=== PATIENT | male | born 1945 | race Caucasian/White ===

== ENCOUNTER → 2020-03-27 | Outpatient (CLI) | payer MEDICARE | END | disposition home or self-care (01) | LOC: LABWHC1 12:32 | PROVIDERS: ATTEND Internal Medicine Gastroenterology | DX: Z11.59 Encounter for screening for other viral diseases (principal) ==

== ENCOUNTER 2020-03-29 09:11 | Day surgery (SDC) | payer MEDICARE ==
[2020-03-27 11:22] VITALS: BMI 28.0
[~2020-03-29 09:11] MED LIST: LACTATED RINGERS 1,000 ML IV SCH; LIDOCAINE 1% (10MG/ML) FOR IV START INTRADERMA PRN
[2020-03-29 10:08] VITALS: RESP 16; TEMP 97.1
[2020-03-29] MEDS ORDERED: fentaNYL (PF) 50 MCG/ML 2 ML AMP ONE (10:29)
[2020-03-29] MEDS ORDERED: PROPOFOL 10 MG/ML 20 ML VIAL IV ONE (10:29)
[2020-03-29] MEDS ORDERED: MIDAZOLAM 2 MG/2 ML VIAL ONE (10:29)
--- NOTE | 2020-03-29 10:51 | P.PCN ---
Date of Procedure: 03/29/20 Procedure(s) Performed: BRIEF HISTORY: Patient is a 74-year-old pleasant male scheduled for an elective colonoscopy as a part of follow-up of a flat ascending colon polyp noted on colonoscopy in September 2019 which was partially removed and biopsies revealed tubulovillous adenoma. He scheduled for repeat surveillance as well as colonoscopy for complete polypectomy. PROCEDURE PERFORMED: Colonoscopy. PREOPERATIVE DIAGNOSIS: Follow-up ascending colon polyp. IV sedation per Anesthesia. PROCEDURE: After informed consent was obtained, the patient, was brought into the endoscopy unit. IV sedation was administered by Anesthesia under continuous monitoring. Digital rectal examination was normal. Initially the Olympus CF-160 flexible video colonoscope was then inserted in the rectum, gradually advanced into the cecum without any difficulty. Careful examination was performed as the scope was gradually being withdrawn. Ileocecal valve and the appendiceal orifice were visualized and appeared normal. Prep was excellent. Mucosa of the cecum, ascending colon, transverse colon, descending colon, sigmoid colon, and rectum appeared normal. Retroflexion was performed in the rectum and small internal were seen. The patient tolerated the procedure well. IMPRESSION: No evidence of residual polyp noted in the ascending colon Small internal hemorrhoids RECOMMENDATIONS: Findings of this examination were discussed with the patient as well as his family. He was advised to have a repeat surveillance colonoscopy in 3 years from now.
[2020-03-29 11:06] VITALS: BP 141/84; PULSE 82
== END 2020-03-29 11:25 | disposition home or self-care (01) ==
LOC: ORWHC2ENDO 09:11
PROVIDERS: ATTEND Internal Medicine Gastroenterology
DX: Z09 Encounter for follow-up examination after completed treatment for conditions other than malignant neoplasm (principal); K64.8 Other hemorrhoids; Z86.010 Personal history of colon polyps; E78.5 Hyperlipidemia, unspecified; E78.00 Pure hypercholesterolemia, unspecified; N42.9 Disorder of prostate, unspecified; Z88.2 Allergy status to sulfonamides; Z88.6 Allergy status to analgesic agent; Z79.899 Other long term (current) drug therapy
CPT/HCPCS: 45378; J2250; J3010; J2704

== ENCOUNTER → 2021-01-01 | Outpatient (CLI) | payer MEDICARE ==
--- NOTE | 2021-01-01 21:57 | MR ---
EXAMINATION TYPE: MR angio head wo con DATE OF EXAM: 01/01/2021 COMPARISON: NONE HISTORY: Tunnel vision for 3 weeks. Other localized visual field defect, bilateral. TECHNIQUE: Time of flight images focusing on the [place] were performed without contrast.. 2-D and 3-D postprocessing imaging is performed on a independent workstation and reviewed.. FINDINGS: There is codominant vertebrobasilar system. Vertebral arteries are patent to basilar juncti on. There is hypoplastic right P1 segment with filling of right P2 segment due to patent right blood bank order control clerk ior medicating artery. There is hypoplastic left posterior communicating artery. Images of the anterior circulation show hypoplastic anterior communicating artery. There is no signif icant focal stenosis or aneurysmal change in the anterior circulation. IMPRESSION: No aneurysm at level of [place].
--- NOTE | 2021-01-01 21:58 | MR ---
EXAMINATION TYPE: MR brain wo/w con DATE OF EXAM: 01/01/2021 COMPARISON: NONE HISTORY: Tunnel vision for 3 weeks. Other localized visual field defect, bilateral. TECHNIQUE: Multiplanar, multisequence images of the brain and brainstem is performed without and with IV contras t, utilizing 8.5 mL intravenous Gadavist . FINDINGS: Diffusion weighted images demonstrate no evidence of a recent infarct or other diffusion ab normality. There is mild ventricular and sulcal prominence. Occasional scattered focus of T2 hyperin tensity seen throughout the white matter bilaterally. Midline structures demonstrate normal morphology. The craniocervical junction appears within normal limits. Post contrast images demonstrate no abnormal enhancement. The dural venous sinuses appear pa tent. The visualized sinuses are clear and the globes are intact. Suprasellar cistern is maintained. IMPRESSION: Mild diffuse age-related cerebral atrophy and minimal chronic small vessel ischemic hensley e. No MRI evidence for recent infarct.
== END | disposition home or self-care (01) ==
LOC: RADMRIMAIN 18:03
PROVIDERS: ATTEND Family Medicine
DX: G31.1 Senile degeneration of brain, not elsewhere classified (principal); I67.82 Cerebral ischemia; H53.453 Other localized visual field defect, bilateral
CPT/HCPCS: 70544; 70553; A9585

== ENCOUNTER → 2023-10-14 | Outpatient (CLI) | payer MEDICARE ==
[2023-10-14 18:46] LABS: HCT 42.9 % (39.6-50.0); HGB 14.2 g/dL (13.0-17.0); MCHC 33.1 g/dL (32.0-37.0); MCV 90.7 FL (80.0-97.0); Mean Platelet Volume 10.3 FL (9.5-12.2); NRBC Per 100 WBC 0 X 10*3/uL (0.00-0.01); Platelet Count 278 X 10*3/uL (140-440); RBC 4.73 X 10*6/uL (4.40-5.60); RDW 12.9 % (11.5-14.5)
[2023-10-14 18:49] LABS: ALT 32 U/L (10-49); AST 18 U/L (14-35); Albumin 4.4 g/dL (3.8-4.9); Albumin/Globulin Ratio 1.57 Ratio (1.60-3.17); Alkaline Phosphatase 67 U/L (41-126); Blood Urea Nitrogen 14.4 mg/dL (9.0-27.0); Calcium 9.9 mg/dL (8.7-10.3); Carbon Dioxide 26.2 mmol/L (21.6-31.8); Chloride 104 mmol/L (96-109); Globulin 2.8 g/dL (1.6-3.3); Glucose 123 mg/dL (70-110); Sodium 142 mmol/L (135-145); Total Bilirubin 0.5 mg/dL (0.3-1.2); Total Protein 7.2 g/dL (6.2-8.2)
[2023-10-14 21:21] LABS: Prothrombin Time 10.6 sec (10.0-12.5)
== END | disposition home or self-care (01) ==
LOC: LABPAT 13:40
PROVIDERS: ATTEND Orthopaedic Surgery Sports Medicine
DX: Z01.812 Encounter for preprocedural laboratory examination (principal); Z22.322 Carrier or suspected carrier of Methicillin resistant Staphylococcus aureus; M25.512 Pain in left shoulder; I44.4 Left anterior fascicular block; R94.31 Abnormal electrocardiogram [ECG] [EKG]
CPT/HCPCS: 80053; 85027; 85610; 85730; 87070; 93005

== ENCOUNTER → 2024-03-11 | Outpatient (CLI) | payer MEDICARE ==
--- NOTE | 2024-03-12 07:16 | CA ---
Transthoracic Echo Report Name: Justice Ceballos Age: 78 Gender: M : 1945 Exam Date: 03/11/2024 15:31 Exam Location: [facility] Ht (in): 69 Wt (lb): 185 Ordering Physician: Lai David DO Attending/Referring Phys: FlakitaAlisa [facility] [employer] Prado RDCS Procedure CPT: Indications: Z73.89 OTHER PROBLEMS RELATED TO LIFE MANAGEMENT D Cardiac Hx: Technical Quality: Fair Contrast 1: Total Dose (mL): Contrast 2: Total Dose (mL): MEASUREMENTS (Male / Female) Normal Values 2D ECHO LV Diastolic Diameter PLAX 5.1 cm 4.2 - 5.9 / 3.9 - 5.3 cm LV Systolic Diameter PLAX 3.6 cm IVS Diastolic Thickness 0.7 cm 0.6 - 1.0 / 0.6 - 0.9 cm LVPW Diastolic Thickness 0.9 cm 0.6 - 1.0 / 0.6 - 0.9 cm LV Relative Wall Thickness 0.3 RV Internal Dim ED PLAX 2.4 cm LVOT Diameter 2.1 cm Aortic Root Diameter 3.4 cm LV Diastolic Volume MOD BP 111.3 cm??? 67 - 155 / 56 - 104 cm??? LV Systolic Volume MOD BP 41.6 cm??? 22 - 58 / 19 - 49 cm??? LV Ejection Fraction MOD BP 62.6 % >= 55 % LV Cardiac Index MOD BP 2702.9 cm???/min???m??? LV Diastolic Volume MOD 4C 114.8 cm??? LV Systolic Volume MOD 4C 36.1 cm??? LV Ejection Fraction MOD 4C 68.5 % LV Cardiac Index MOD 4C 3050.8 cm???/min???m??? LV Diastolic Length 4C 8.8 cm LV Systolic Length 4C 7.4 cm LV Diastolic Volume MOD 2C 105.5 cm??? LV Systolic Volume MOD 2C 45.6 cm??? LV Ejection Fraction MOD 2C 56.8 % LV Cardiac Index MOD 2C 2322.2 cm???/min???m??? LV Diastolic Length 2C 9.1 cm LV Systolic Length 2C 7.9 cm Ascending Aorta Diameter 3.4 cm DOPPLER AV Peak Velocity 109.7 cm/s AV Peak Gradient 4.8 mmHg AV Mean Velocity 78.3 cm/s AV Mean Gradient 2.7 mmHg AV Velocity Time Integral 21.1 cm LVOT Peak Velocity 83.1 cm/s LVOT Peak Gradient 2.8 mmHg LVOT Velocity Time Integral 15.3 cm LVOT Stroke Volume 51.2 cm??? LVOT Stroke Volume Index 25.6 ml/m??? LVOT Cardiac Index 1986.3 cm???/min???m??? AV Area Cont Eq vti 2.4 cm??? AV Area Cont Eq pk 2.5 cm??? Mitral E Point Velocity 53.3 cm/s Mitral A Point Velocity 71.0 cm/s Mitral E to A Ratio 0.8 MV Deceleration Time 239.6 ms MV E' Velocity 6.7 cm/s Mitral E to MV E' Ratio 7.9 PV Peak Velocity 75.5 cm/s PV Peak Gradient 2.3 mmHg FINDINGS Left Ventricle Left ventricular ejection fraction is estimated at 55-60 %. Left ventricular cavity size normal. Left ventricular wall thickness normal. No obvious regional wall motion abnormalities. Right Ventricle Normal right ventricular size and function. Unable to estimate the right ventricular systolic pressure. Right Atrium Normal right atrial size. Left Atrium Normal left atrial size. Mitral Valve Structurally normal mitral valve. No mitral stenosis,or prolapse. Trace mitral regurgitation. Aortic Valve Trileaflet aortic valve. No aortic valve stenosis or regurgitation.aortic valve sclerosis. Tricuspid Valve Structurally normal tricuspid valve. No tricuspid prolapse. No tricuspid stenosis. No tricuspid regurgitation. Pulmonic Valve Pulmonic valve not well visualized. No pulmonic stenosis. No pulmonic regurgitation. Pericardium No pericardial effusion. Aorta Normal size aortic root and proximal ascending aorta. CONCLUSIONS 1. Normal left ventricular size and systolic function 2. Trace mitral regurgitation Previewed by: Dr. Adonis Covington MD (Electronically Signed) Final Date: 12 Mar 2024 07:15
--- NOTE | 2024-03-12 09:54 | US ---
EXAMINATION TYPE: US carotid duplex BILAT DATE OF EXAM: 03/11/2024 COMPARISON: NONE CLINICAL INDICATION: Male, 78 years old with history of R53.83 FATIGUE; Fatigue TECHNIQUE: Carotid duplex ultrasound examination. Indirect Doppler criteria was utilized. FINDINGS: EXAM MEASUREMENTS: RIGHT: Peak Systolic Velocity (PSV) cm/sec ----- Right CCA: 125 ----- Right ICA: 89.0 ----- Right ECA: 174 ICA/CCA ratio: 0.71 RIGHT: End Diastole cm/sec ----- Right CCA: 29.2 ----- Right ICA: 31.2 ----- Right ECA: 21.7 LEFT: Peak Systolic Velocity (PSV) cm/sec ----- Left CCA: 215 ----- Left ICA: 160 ----- Left ECA: 187 ICA/CCA ratio: 0.74 LEFT: End Diastole cm/sec ----- Left CCA: 41.3 ----- Left ICA: 25.4 ----- Left ECA: 18.2 VERTEBRALS (direction of flow): Right Vertebral: Antegrade Left Vertebral: Antegrade Rhythm: Normal WIND UP WORKER NOTES: Mild to moderate plaque bilateral bifurcations. Increased velocities right ECA, l eft CCA, left Bulb, left ICA and left ECA IMPRESSION: 1. Moderate heterogeneous plaque in the carotid bifurcations bilaterally. 2. No hemodynamically significant stenosis within the right common or internal carotid arteries. Peak systolic velocities and ratios. 3. Elevated velocity in the left common and internal carotid arteries but normal ratio. Cannot exclud e significant stenosis on the left and CTA of the neck is recommended for further evaluation. Criteria for Assigning % of Stenosis / Diameter reduction (Estimation based on the indirect measurements of the internal carotid artery velocities (ICA PSV). 1. Normal (no stenosis)=ICA PSV < 125 cm/s: ratio < 2.0: ICA EDV<40 cm/s. 2. Less than 50% stenosis=ICA PSV < 125 cm/s: ratio < 2.0: ICA EDV<40 cm/s. 3. 50 to 69% stenosis=ICA PSV of 125 to 230 cm/s: ration 2.0 ? 4.0: ICA EDV 40-100 cm/s. 4. Greater than 70% stenosis to near occlusion= ICA PSV > 230 cm/s: ratio > 4.0: ICA EDV > 100 cm/s. 5. Near occlusion= ICA PSV velocities may be low or undetectable: variable ratio and ICA EDV. 6. Total occlusion=unable to detect flow.
== END | disposition home or self-care (01) ==
LOC: RADECHMAIN 15:22
PROVIDERS: ATTEND Family Medicine
DX: I65.23 Occlusion and stenosis of bilateral carotid arteries (principal); R53.83 Other fatigue; I34.0 Nonrheumatic mitral (valve) insufficiency; Z73.89 Other problems related to life management difficulty
CPT/HCPCS: 93306; 93880

== ENCOUNTER → 2024-03-26 | Outpatient (CLI) | payer MEDICARE ==
[2024-03-26 13:10] LABS: African American GFR (CKD) >90 (>60 ml/min/1.73 sqM); Blood Urea Nitrogen 14 mg/dL (9-20); Non-African American GFR(CKD) >90 (>60 ml/min/1.73 sqM)
--- NOTE | 2024-03-26 14:25 | CT ---
EXAMINATION TYPE: CT angio neck DATE OF EXAM: 03/26/2024 HISTORY: Occlusion and stenosis carotid arteries. Pt c/o leg pain, weakness. COMPARISON: None CT DLP: 330.30 mGycm. Automated Exposure Control for Dose Reduction was Utilized. TECHNIQUE: CTA scan of the head and neck is performed with IV Contrast, patient injected with 65 mL of Isovue 370, axial images are obtained, coronal and sagittal reformatted images are reviewed. 3D re constructed images are created on an independent workstation and reviewed. FINDINGS: FINDINGS: There is mild eccentric calcified plaque in the carotid bifurcations. There is no significant stenosi s of the common or internal carotid arteries within the neck. There is no stenosis of the vertebral a rteries. IMPRESSION:. No significant stenosis the common or internal carotid arteries within the neck. NASCET criteria was used in interpretation of this exam?
== END | disposition home or self-care (01) ==
LOC: RADCTMAIN 12:06
PROVIDERS: ATTEND Family Medicine
DX: I65.23 Occlusion and stenosis of bilateral carotid arteries (principal); M79.606 Pain in leg, unspecified; R53.1 Weakness
CPT/HCPCS: 82565; 84520; 70498; 36415; Q9967